=== PATIENT | male | born 1975 | race Caucasian/White ===

== ENCOUNTER → 2021-08-30 | Outpatient (CLI) | payer OTHER ==
--- NOTE | 2021-08-30 10:13 | RAD ---
Exam: XR KNEE_AP BILAT STANDING, XR KNEE_RT 1-2 VIEWS History: Chronic right knee pain Comparison: None. Findings: Osseous mineralization is normal. No acute fracture or dislocation. Small tricompartmental osteophyte s in the right knee. The joint spaces are otherwise relatively well-preserved. Small suprapatellar ef fusion. Single AP view of the contralateral left knee demonstrates small marginal osteophytes. Impression: 1. Mild degenerative changes and small effusion without acute osseous abnormality in the right knee. Electronically signed by: Carroll Holcobm MD (08/30/2021 10:11 AM) [id number]
== END ==
LOC: RAD 09:27
PROVIDERS: ATTEND Physician Assistant
DX: M17.11 Unilateral primary osteoarthritis, right knee (principal); M25.461 Effusion, right knee; M25.762 Osteophyte, left knee; M25.761 Osteophyte, right knee
CPT/HCPCS: 73560; 73565